=== PATIENT | female | born 1980 | race African-American/Black ===

== ENCOUNTER 2017-12-20 09:52 | Emergency (ER) | payer OTHER ==
[~2017-12-20] VITALS: Ht 175.3 cm; Wt 79.8 kg
[2017-12-20 09:52] VITALS: BP 120/73
== END 2017-12-20 11:11 | disposition home or self-care (01) ==
LOC: ER 09:55
DX: S83.8X1A Sprain of other specified parts of right knee, initial encounter (principal); M54.41 Lumbago with sciatica, right side; I10 Essential (primary) hypertension; F41.9 Anxiety disorder, unspecified; W19.XXXA Unspecified fall, initial encounter; Y93.89 Activity, other specified; Y92.89 Other specified places as the place of occurrence of the external cause; Y99.8 Other external cause status
CPT/HCPCS: 72170; 73564; 99284; A4606; Z7610

== ENCOUNTER 2019-01-28 16:47 | Emergency (ER) | payer OTHER ==
[~2019-01-28] VITALS: Ht 175.3 cm; Wt 73.0 kg
--- NOTE | 2019-01-28 17:01 | NUR ---
CAME IN FOR HEADACHE FOR 7 DAYS RADIATES TO THE BACK OF THE NECK, PT C/O L LOWER ABDOMINAL PAIN, TO ER BED 10, HOOKED TO PARDEEP, CHANGED TO ERIC MOSQUERA, AWAITING MD WELLS
--- NOTE | 2019-01-28 17:19 | NUR ---
DR VILLAGOMEZ AT BEDSIDE FOR EVAL
[2019-01-28 17:37] LABS: BASOPHILS % (AUTO) 0.4 % (0.0-2.0); EOSINOPHILS % (AUTO) 1.9 % (0.0-6.0); HEMATOCRIT 38 % (33-45); LYMPHOCYTES # (AUTO) 1.8 /CMM (0.8-4.8); LYMPHOCYTES % (AUTO) 37.7 % (20.0-44.0); MEAN CORPUSCULAR HGB CONC 32 g/dl (31.0-36.0); MEAN CORPUSCULAR VOLUME 81 fL (82-100); MONOCYTES # (AUTO) 0.3 /CMM (0.1-1.30); MONOCYTES % (AUTO) 5.9 % (2.0-12.0); NEUTROPHILS # (AUTO) 2.6 /CMM (1.8-8.9); NEUTROPHILS % (AUTO) 54.1 % (43.0-81.0); PLATELET COUNT (AUTO) 279 /CMM (150-450); RED BLOOD CELL COUNT(AUTO) 4.65 MIL/uL (4.0-5.2); WHITE BLOOD COUNT (AUTO) 4.9 K/uL (4.3-11.0)
--- NOTE | 2019-01-28 17:39 | NUR ---
PATIENT WHEELED OUT VIA GURNEY FOR CT SCAN
[2019-01-28 18:06] LABS: CALCIUM, SERUM 8.7 mg/dL (8.5-10.1); CREATININE 0.9 mg/dL (0.6-1.3); POTASSIUM 3.7 mmol/L (3.5-5.1)
[2019-01-28] MEDS ORDERED: KETOROLAC TROMETHAMINE INJ 30 MG/ML VIAL ONE (19:27)
[2019-01-28] MEDS ORDERED: METOCLOPRAMIDE HCL 10 MG/2 ML VIAL ONE (19:27)
[2019-01-28] MEDS: KETOROLAC TROMETHAMINE INJ 30 MG/ML VIAL IV ONE (19:33)
[2019-01-28] MEDS: METOCLOPRAMIDE HCL 10 MG/2 ML VIAL IV ONE (19:33)
--- NOTE | 2019-01-28 19:33 | NUR ---
REPORT GIVEN TO CHRISTY BOLIVAR RN FOR GEMMA
--- NOTE | 2019-01-28 20:09 | NUR ---
IV removed. Catheter intact and site benign. Pressure and 4x4 applied to site. No bleeding noted. Patient discharged to home in stable condition. Written and verbal after care instructions given. Patient verbalizes understanding of instruction.
[2019-01-28 20:10] VITALS: BP 78/114
== END 2019-01-28 20:10 | disposition home or self-care (01) ==
LOC: ER 16:47
DX: R51 Headache (principal); F41.9 Anxiety disorder, unspecified; F12.10 Cannabis abuse, uncomplicated; I10 Essential (primary) hypertension; F10.10 Alcohol abuse, uncomplicated; F17.200 Nicotine dependence, unspecified, uncomplicated; Y90.9 Presence of alcohol in blood, level not specified; Z60.2 Problems related to living alone
CPT/HCPCS: 36415; 70450; 80048; 84702; 85025; 96374; 96375; 99284; 99406; J1885; J2765; J7030